=== PATIENT | male | born 1975 | race Caucasian/White ===

== ENCOUNTER 2017-01-26 22:51 | Emergency (ER) | payer BC ==
[2017-01-27 00:07] VITALS: RESP 18
--- NOTE | 2017-01-27 00:10 | C.PDOC ---
History Of Present Illness Pt noticed blood on right eye after "laughing hard". He then because anxious. Time Seen by Provider: 01/26/17 23:19 Chief Complaint (Nursing): Eye Problem History Per: Patient, Family Onset/Duration Of Symptoms: Hrs (tonight) Current Symptoms Are (Timing): Still Present Injury To Eye?: No Severity: Moderate Associated Symptoms: Other (Subconjunctival hemorrhage) Additional History Per: Prior Records Past Medical History Reviewed: Historical Data, Nursing Documentation, Vital Signs Vital Signs: Last Vital Signs Temp 98.3 F 01/26/17 23:02 Pulse 119 H 01/26/17 23:02 Resp 18 01/27/17 00:02 BP 161/111 H 01/26/17 23:02 Pulse Ox 98 01/26/17 23:02 - Medical History PMH: HTN, Hyperlipidemia Family History: States: Unknown Family Hx - Social History Hx Alcohol Use: No Hx Substance Use: No Review Of Systems Except As Marked, All Systems Reviewed And Found Negative. Constitutional: Negative for: Fever, Weakness Eyes: Negative for: Pain, Vision Change Cardiovascular: Negative for: Chest Pain Respiratory: Negative for: Shortness of Breath, Hemoptysis Gastrointestinal: Negative for: Vomiting, Abdominal Pain Musculoskeletal: Negative for: Neck Pain Skin: Negative for: Rash Neurological: Negative for: Weakness, Numbness, Seizures, Altered Mental Status , Headache, Dizziness Psych: Positive for: Anxiety Physical Exam - Physical Exam Appears: Non-toxic, No Acute Distress Skin: Normal Color, Warm, Dry, No Rash Head: Atraumatic, Normacephalic Eye(s): bilateral: PERRL, EOMI, right: Other (subconjunctival hemorrhage) Neck: Normal ROM, Supple Cardiovascular: Rhythm Regular Respiratory: Normal Breath Sounds, No Accessory Muscle Use Gastrointestinal/Abdominal: Soft, No Tenderness Extremity: Normal ROM Neurological/Psych: Oriented x3, Normal Speech, Normal Cognition, Normal Cranial Nerves, Normal Motor, Normal Sensation ED Course And Treatment ECG: Interpreted By Me, Viewed By Me ECG Rhythm: Sinus Rhythm, Nonspecific Changes ECG Interpretation: No Acute Changes Rate From EC O2 Sat by Pulse Oximetry: 98 Pulse Ox Interpretation: Normal Progress Note: Pt's vital signs normalized after reassurance. Reassessment Condition: Improved Disposition Counseled Patient/Family Regarding: Diagnosis, Need For Followup - Disposition Referrals: Toni Yen MD [Staff Provider] - Disposition: HOME/ ROUTINE Disposition Time: 00:11 Condition: IMPROVED Additional Instructions: Follow up with your doctor. Follow up with an Training Development Director. Return to the ER if you develop change in vision, worsening of symptoms or if you have any other concerns. Instructions: Subconjunctival Hemorrhage (ED) - Clinical Impression Clinical Impression: Subconjunctival hemorrhage of right eye
[2017-01-27 00:40] VITALS: BP 116/60; PULSE 86; TEMP 98.8; O2SAT 97
--- NOTE | 2017-02-01 13:57 | CARD ---
APPROVED REPORT EKG Measurement Heart [id number] <Conclusion> Normal sinus rhythm Early repolarization Normal ECG
== END 2017-01-27 00:40 | disposition home or self-care (01) ==
LOC: C.ER 22:51
DX: H11.31 Conjunctival hemorrhage, right eye (principal)